=== PATIENT | female | born 1980 ===

== ENCOUNTER → 2022-05-11 | Outpatient (CLI) | payer OTHER ==
[2022-05-16 20:09] LABS: HSV-1 DNA Negative (Negative); HSV-2 DNA Negative (Negative)
== END | disposition home or self-care (01) ==
LOC: LAB 16:07 → LAB SHORT 16:07
PROVIDERS: Physician Assistant
DX: L30.9 Dermatitis, unspecified (principal); D23.71 Other benign neoplasm of skin of right lower limb, including hip; B07.8 Other viral warts; L53.8 Other specified erythematous conditions; Z48.02 Encounter for removal of sutures
CPT/HCPCS: 87529

== ENCOUNTER → 2024-06-25 | Outpatient (CLI) | payer OTHER ==
[2024-07-03 06:54] LABS: HPV HIGH RISK BY TMA Not Detected; HPV SOURCE Cervical
== END ==
LOC: LAB 11:21 → LAB SHORT 11:21
PROVIDERS: Family Medicine
DX: Z01.419 Encounter for gynecological examination (general) (routine) without abnormal findings (principal)
CPT/HCPCS: 87624; G0123

== ENCOUNTER → 2025-04-14 | Outpatient (CLI) | payer OTHER | END | disposition home or self-care (01) | LOC: LAB SHORT 17:46 → LAB 17:46 | DX: R35.0 Frequency of micturition (principal) | CPT/HCPCS: 87077; 87086; 87186 ==